=== PATIENT | female | born 1965 | race Caucasian/White ===

== ENCOUNTER → 2018-06-22 | Outpatient (CLI) | payer SELFPAY ==
--- NOTE | 2018-06-22 14:57 | Diagnostic Imaging Report ---
CLINICAL INDICATION: Patient with pain in ribs on left side, yesterday turned and heard a pop. Patient has history of left side rib issues. EXAM: X-ray of the left ribs, three views. COMPARISON: None. FINDINGS: Left ribs show no acute fracture or dislocation. There is no gross bony destructive process seen. There is small spurs involving the thoracic spine. Limited visualization of the right ribs are unremarkable. Surgical clips are seen overlying the right upper quadrant which could be related to cholecystectomy changes. Visualized portion of the chest is unremarkable. IMPRESSION: There is no left rib fracture or bony destructive process. Dictated by: Dictated on workstation # [id number]
== END ==
LOC: RAD FS 14:03
PROVIDERS: ATTEND Family Medicine
DX: R07.81 Pleurodynia (principal)
CPT/HCPCS: 71100